=== PATIENT | male | born 1955 | race Caucasian/White ===

== ENCOUNTER 2018-06-25 21:51 | Inpatient (IN) | payer BC ==
[2018-06-25] MEDS ORDERED: MORPHINE SULFATE 4 MG/ML SYRINGE IVP STA (22:50)
[2018-06-25] MEDS: ONDANSETRON 4 MG/2 ML VIAL IVP STA (23:03)
[2018-06-25] MEDS ORDERED: HYDROcodone/APAP 5-325MG 1 EACH TAB PO STA (23:35)
[2018-06-25] MEDS ORDERED: NALOXONE 0.4 MG/ML 1 ML VIAL IV PRN (23:35)
[2018-06-25] MEDS ORDERED: HYDROcodone/APAP 5-325MG 1 EACH TAB PO PRN (23:35)
[2018-06-25] MEDS ORDERED: ONDANSETRON 4 MG/2 ML VIAL IVP PRN (23:35)
--- NOTE | 2018-06-25 23:35 | ED ---
Abdominal Pain HPI - General Chief Complaint: Abdominal Pain Stated Complaint: kidney problem Time Seen by Provider: 06/25/18 21:56 Source: patient, EMS Mode of arrival: EMS Limitations: no limitations - History of Present Illness Initial Comments: 62-year-old male patient presented to the emergency department today for evaluation as a transfer from [facility] for left-sided kidney stone. Patient reports that this morning he started with severe left-sided flank pain that persisted intermittently over the next several hours. Patient states became so severe that he was nauseated. States it began to radiate into the left lower quadrant so he presented to the hospital for further evaluation. Patient underwent extensive workup including labs and CT of the abdomen and pelvis which did show evidence of a left-sided ureteral stone measuring 3 mm, there is also evidence of forniceal rupture with perinephric extremity sensation of urine. Also concerning was patient slow hemoglobin 8.6 and positive guaiac. Patient does report intermittent symptoms of dizziness and near syncope over the last several days. Patient denies any robert blood to his stool, denies any dark or black stools. Patient does have history of acid reflux and does take Zantac on a daily basis for this. States that he still has breakthrough heartburn almost daily. Patient denies any fever or chills. Denies any urinary retention. Denies any constipation or diarrhea. States he is generally healthy and takes fish oil [id number]. Patient denies any recent rash, shortness breath, chest pain, numbness, tingling, headache, visual changes, or any other complaints. - Related Data Home Medications Medication Instructions Recorded Confirmed [place]-3 Fatty Acids/Fish Oil [Fish 1 cap PO DAILY 06/25/18 06/25/18 Oil 1,000 mg Softgel] Ranitidine HCl [Zantac] 150 mg PO DAILY 06/25/18 06/25/18 Allergies Allergy/AdvReac Type Severity Reaction Status Date / Time Penicillins Allergy Rash/Hives Verified 06/25/18 22:38 codeine AdvReac Verified 06/25/18 22:38 Review of Systems ROS Statement: Those systems with pertinent positive or pertinent negative responses have been documented in the HPI. ROS Other: All systems not noted in ROS Statement are negative. General Exam Limitations: no limitations General appearance: alert, in no apparent distress, other (Physical well- developed, well-nourished adult male patient in no acute distress. Vital signs upon presentation are temperature 97.7F, pulse 81, respirations 16, blood pressure 158/85, pulse ox 95% on room air.) Eye exam: Present: normal appearance, PERRL, EOMI. Absent: scleral icterus, conjunctival injection, periorbital swelling ENT exam: Present: normal exam, normal oropharynx, mucous membranes moist Respiratory exam: Present: normal lung sounds bilaterally. Absent: respiratory distress, wheezes, rales, rhonchi, stridor Cardiovascular Exam: Present: regular rate, normal rhythm, normal heart sounds. Absent: systolic murmur, diastolic murmur, rubs, gallop, clicks GI/Abdominal exam: Present: soft, tenderness (Left lower quadrant tenderness), normal bowel sounds. Absent: distended, guarding, rebound, rigid Neurological exam: Present: alert, oriented X3, CN II-XII intact Psychiatric exam: Present: normal affect, normal mood Skin exam: Present: warm, dry, intact, normal color. Absent: rash Course Vital Signs 06/25/18 22:07 Temperature 97.7 F Pulse Rate 81 Respiratory 16 Rate Blood Pressure 158/85 O2 Sat by Pulse 95 Oximetry Medical Decision Making - Medical Decision Making 62-year-old male patient presented to the emergency department today for evaluation as a transfer from [facility] for kidney stone. Patient underwent extensive workup including labs and CT of the abdomen and pelvis which did show evidence of a left-sided ureteral stone measuring 3 mm, there is also evidence of forniceal rupture with perinephric extremity sensation of urine. Also concerning was patient slow hemoglobin 8.6 and positive guaiac. Patient does report intermittent symptoms of dizziness and near syncope over the last several days. Patient's urinalysis does not show any evidence of infection. Remainder of labs are unremarkable. Given symptomatic anemia and positive occult blood. We will admit to the hospital for GI evaluation. Given the presence of kidney stone and kidney findings we will also consult urologist. My attending Dr. Gurjit peralta speak to Dr. Toscano. Patient will be admitted to Dr. Raymond from [facility]. Disposition Clinical Impression: Left ureteral stone, GI bleed Disposition: ADMITTED IP TO THIS [facility] Condition: Serious Referrals: Maurizio Diop DO [Primary Care Provider] - 1-2 days Decision to Admit Reason: Admit from Decision Date: 06/25/18 Decision Time: 23:35
[2018-06-26 00:50] VITALS: BMI 23.4
[2018-06-26] MEDS: ONDANSETRON 4 MG/2 ML VIAL IVP STA (00:52)
[2018-06-26] MEDS: SODIUM CHLORIDE 0.9% 1,000 ML IV SCH ×2 (00:59→12:43)
[2018-06-26] MEDS: PANTOPRAZOLE 40 MG TABLET PO SCH ×3 (00:59→17:32)
--- NOTE | 2018-06-26 01:36 | P.HPIM ---
History of Present Illness H&P Date: 06/26/18 Chief Complaint: left sided flank pain, left kidney stone 62 year old male with no significant past medical history except for GERD Patient woke up this morning with left flank pain radiating to the right side for which she went to [facility] patient was transferred to our facility from [facility] for left sided kidney stone. He reports severe left sided colicky pain 10/10 in severity intermittent , lasted for many hours , associated with nausea, pain radiating to his left groin . CT of the abdomen at the other facility showed evidence of left uretral stone measuring 3 mm. patient was also found to have symptomatic anemia with guaiac positive, Hgb was 8.6 , he admits to dizziness and near syncope over the past few days. however, he deneis any evidence of GI bleeding, denies any NSAIDs. Denies any alcohol. However he does admit to long history of GERD for which she takes Zantac. patient denies any fever, chills, chest pain , SOB. denies any hematuria, urinary symptoms. Review of Systems Pertinent positives as noted in HPI. All other systems were reviewed and are negative Past Medical History - Past Family History Mother Family Medical History: Myocardial Infarction ([place]) Father Family Medical History: Myocardial Infarction ([place]) Medications and Allergies Home Medications Medication Instructions Recorded Confirmed Type [place]-3 Fatty Acids/Fish Oil [Fish 1 cap PO DAILY 06/25/18 06/25/18 History Oil 1,000 mg Softgel] Ranitidine HCl [Zantac] 150 mg PO DAILY 06/25/18 06/25/18 History Allergies Allergy/AdvReac Type Severity Reaction Status Date / Time Penicillins Allergy Rash/Hives Verified 06/25/18 22:38 codeine AdvReac Verified 06/25/18 22:38 Physical Exam Vitals: Vital Signs Temp Pulse Resp BP Pulse Ox 06/25/18 22:07 97.7 F 81 16 158/85 95 Intake and Output 06/25/18 06/25/18 06/26/18 14:59 22:59 06:59 Other: Weight 86.183 kg Constitutional: No acute distress, conversant, pleasant Eyes: Anicteric sclerae, moist conjunctiva, no lid-lag Pupils equal round reactive to light ENMT: NC/AT Oropharynx clear, no erythema, exudates Neck: Supple, FROM, no masses, or JVD No carotid bruits No thyromegaly Lungs: Clear to auscultation Clear to percussion Normal respiratory effort, no accessory muscle use Cardiovascular: Heart regular in rate and rhythm, No murmurs, gallops, or rubs No peripheral edema Abdominal: Soft, no tenderness palpation of bilateral costovertebral angles Nontender, no guarding, rebound or rigidity Abdomen moving with respiration Normoactive bowel sounds No hepatomegaly, No splenomegaly No palpable mass No abdominal wall hernia noted Skin: Normal temperature, tone, texture, turgor No induration No subcutaneous nodules No rash, lesions No ulcers Extremities: No digital cyanosis No clubbing Pedal pulses intact and symmetrical Radial pulses intact and symmetrical No calf tenderness Psychiatric: Alert and oriented to person, place and time Appropriate affect fair judgment Neuro Muscles Strength 5/5 in all 4 extremities Sensation to light touch grossly present throughout Cranial nerves II-XII grossly intact No focal sensory deficits Lymphatics: no palpable cervical or supraclavicular , or inguinal lymph nodes Assessment and Plan Assessment: 62 year old male with no significant past medical history , admitted as in patient with anticipated length of stay >48 hours, due to syptomatic anemia, left renal stone. patient was afound to be anemia incidentally when presented for left flank pain, CT showed left uretral stone. never had Cscope or EGD, complains for chronic GERD, denies any ETOH, or NSAIDs Plan: symptomatic anemia, with near syncope PPI BID GI consult NPO IVF hydration long history of GERD, never had EGD or Cscope, denies melena or bloody bowel movement left flank pain, left uretral stone urinalysis unremarkable mild leukocytosis , no fever, pain control IVF hydration straining of urine urology consult DVT PPX mechanical , due to severe anemia Surrogate decision-maker: Patient CODE STATUS: Full code Discussed with: Patient, ER, RN Anticipated discharge: 48-[address]: Home A total of 60 minutes was spent on the care of this complex patient more than 50% of the time was spent in counseling and care coordination.
[2018-06-26 07:28] LABS: Anisocytosis Slight; Basophils % (A) 0 %; Eosinophils # (A) 0.1 k/uL (0-0.7); Eosinophils % (A) 1 %; HCT 28.2 % (39.0-53.0); HGB 8.2 gm/dL (13.0-17.5); Hypochromasia Marked; Lymphocytes # (A) 1.3 k/uL (1.0-4.8); Lymphocytes % (A) 11 %; MCH 22.3 pg (25.0-35.0); MCHC 29.2 g/dL (31.0-37.0); MCV 76.2 fL (80.0-100.0); Mean Platelet Volume 6.9; Microcytosis Slight; Monocytes # (A) 0.9 k/uL (0-1.0); Monocytes % (A) 8 %; Neutrophils # (A) 9.7 k/uL (1.3-7.7); Neutrophils % (A) 79 %; Platelet Count 350 k/uL (150-450); RDW 16.6 % (11.5-15.5); WBC 12.3 k/uL (3.8-10.6)
[2018-06-26 07:30] LABS: Prothrombin Time 10.9 sec (9.0-12.0)
[2018-06-26 07:37] LABS: Anion Gap 6 mmol/L; Blood Urea Nitrogen 13 mg/dL (9-20); Calcium 8.8 mg/dL (8.4-10.2); Carbon Dioxide 23 mmol/L (22-30); Chloride 109 mmol/L (98-107); Glucose 97 mg/dL (74-99); Potassium 4.7 mmol/L (3.5-5.1); Sodium 138 mmol/L (137-145)
[2018-06-26] MEDS: TAMSULOSIN 0.4 MG CAP.ER.24H PO SCH (07:52)
--- NOTE | 2018-06-26 09:06 | P.GSCN ---
History of Present Illness Consult date: 06/26/18 Reason for Consult: Left renal colic Requesting physician: Claus Raymond History of present illness: The patient is a 62-year-old white male with no prior history of urolithiasis. Yesterday evening, he developed acute onset of left flank pain, associated with nausea and vomiting. He was evaluated in the emergency room in [place] and found to have left hydronephrosis due to a 3 mm calculus at the left ureteroves ical junction. There was evidence of a forniceal rupture. He was transferred to [facility] and admitted. This morning, he is asymptomatic. His urine has been strained, and thus far he has not passed the calculus. Review of Systems - Constitutional Denies chills, Denies fever - Gastrointestinal Reports nausea, Reports vomiting, Denies hematochezia - Genitourinary Reports flank pain, Reports kidney stones, Denies dysuria, Denies hematuria Past Medical History Past Medical History: GERD/Reflux History of Any Multi-Drug Resistant Organisms: None Reported Past Surgical History: Bowel Resection, Hernia Repair Additional Past Surgical History / Comment(s): hernia repair x4. 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 Past Anesthesia/Blood Transfusion Reactions: No Reported Reaction Past Psychological History: No Psychological Hx Reported Smoking Status: Never smoker - Past Family History Mother Family Medical History: Myocardial Infarction ([place]) Father Family Medical History: Myocardial Infarction ([place]) Medications and Allergies Home Medications Medication Instructions Recorded Confirmed Type [place]-3 Fatty Acids/Fish Oil [Fish 1 cap PO DAILY 06/25/18 06/25/18 History Oil 1,000 mg Softgel] Ranitidine HCl [Zantac] 150 mg PO DAILY 06/25/18 06/25/18 History Allergies Allergy/AdvReac Type Severity Reaction Status Date / Time Penicillins Allergy Rash/Hives Verified 06/25/18 22:38 codeine AdvReac Verified 06/25/18 22:38 Surgical - Exam Vital Signs Temp Pulse Resp BP Pulse Ox 97.7 F 81 16 158/85 95 06/25/18 22:07 06/25/18 22:07 06/25/18 22:07 06/25/18 22:07 06/25/18 22:07 - General well developed, well nourished, no distress - Neck no masses, trachea midline - Abdomen Abdomen: soft, non tender, no guarding, no rigid, no rebound - Genitourinary normal penis with no external lesions, testicles non-tender - Psychiatric oriented to time, oriented to person, oriented to place, speech is normal, memory intact Results - Labs 06/26/18 07:07 06/26/18 07:07 Abnormal Lab Results - Last 24 Hours (Table) 06/26/18 06/26/18 Range/Units 07:07 07:07 WBC 12.3 H (3.8-10.6) k/uL RBC 3.70 L (4.30-5.90) m/uL Hgb 8.2 L (13.0-17.5) gm/dL Hct 28.2 L (39.0-53.0) % MCV 76.2 L (80.0-100.0) fL MCH 22.3 L (25.0-35.0) pg MCHC 29.2 L (31.0-37.0) g/dL RDW 16.6 H (11.5-15.5) % Neutrophils # 9.7 H (1.3-7.7) k/uL Chloride 109 H (98-107) mmol/L Diabetes panel 06/26/18 Range/Units 07:07 Sodium 138 (137-145) mmol/L Potassium 4.7 (3.5-5.1) mmol/L Chloride 109 H (98-107) mmol/L Carbon Dioxide 23 (22-30) mmol/L BUN 13 (9-20) mg/dL Creatinine 1.01 (0.66-1.25) mg/dL Glucose 97 (74-99) mg/dL Calcium 8.8 (8.4-10.2) mg/dL Calcium panel 06/26/18 Range/Units 07:07 Calcium 8.8 (8.4-10.2) mg/dL Pituitary panel 06/26/18 Range/Units 07:07 Sodium 138 (137-145) mmol/L Potassium 4.7 (3.5-5.1) mmol/L Chloride 109 H (98-107) mmol/L Carbon Dioxide 23 (22-30) mmol/L BUN 13 (9-20) mg/dL Creatinine 1.01 (0.66-1.25) mg/dL Glucose 97 (74-99) mg/dL Calcium 8.8 (8.4-10.2) mg/dL Adrenal panel 06/26/18 Range/Units 07:07 Sodium 138 (137-145) mmol/L Potassium 4.7 (3.5-5.1) mmol/L Chloride 109 H (98-107) mmol/L Carbon Dioxide 23 (22-30) mmol/L BUN 13 (9-20) mg/dL Creatinine 1.01 (0.66-1.25) mg/dL Glucose 97 (74-99) mg/dL Calcium 8.8 (8.4-10.2) mg/dL - Imaging CT scan - abdomen: report reviewed Assessment and Plan (1) Left ureteral stone Current Visit: Yes Status: Acute Code(s): N20.1 - CALCULUS OF URETER SN OMED Code(s): 41525775 Plan: I explained in detail to the patient that his options consist of medical expulsion therapy versus ureteroscopic removal of his calculus was stent insertion. The pros and cons of each approach were discussed, as were potential risks associated with surgery. He is comfortable at this time, so he will be observed. He will continue to receive tamsulosin, and his urine will be strained. Surgery may be required if he becomes increasingly symptomatic. He will likely remain hospitalized for evaluation of his anemia.
[2018-06-26 11:44] LABS: Anisocytosis Slight; Basophils % (A) 0 %; Eosinophils # (A) 0.1 k/uL (0-0.7); Eosinophils % (A) 1 %; HCT 27.8 % (39.0-53.0); HGB 8.3 gm/dL (13.0-17.5); Hypochromasia Marked; Lymphocytes # (A) 1.2 k/uL (1.0-4.8); Lymphocytes % (A) 13 %; MCH 22.7 pg (25.0-35.0); MCHC 29.7 g/dL (31.0-37.0); MCV 76.4 fL (80.0-100.0); Mean Platelet Volume 8.2; Microcytosis Slight; Monocytes # (A) 0.7 k/uL (0-1.0); Monocytes % (A) 8 %; Neutrophils # (A) 7.3 k/uL (1.3-7.7); Neutrophils % (A) 76 %; Platelet Count 322 k/uL (150-450); RBC 3.64 m/uL (4.30-5.90); RDW 16.9 % (11.5-15.5); WBC 9.7 k/uL (3.8-10.6)
[2018-06-26] MEDS ORDERED: BISACODYL 5 MG TABLET.DR PO STA (11:59)
--- NOTE | 2018-06-26 12:07 | P.PN ---
Progress Note - Text Progress Note Date: 06/26/18 Briefly this is a 62-year-old male was admitted for left-sided urolithiasis after presenting with left flank pain CT showed left ureteral stone measuring approximately 3 mm at the uterovesical junction with hydronephrosis, incidentally the patient was also noted to have symptomatic anemia with a hemoglobin of 8.2. GI has been consulted by studies are pending. Urology has been consulted and plans watchful waiting with plans to observe and hope the patient passes the stone.
--- NOTE | 2018-06-26 13:22 | P.CONS ---
History of Present Illness - Reason for Consult Consult date: 06/26/18 Anemia Requesting physician: Claus Raymond - Chief Complaint Left sided flank pain possible kidney stone - History of Present Illness 62-year-old gentleman PMH GERD and childhood bowel resection transferred from [facility] with left flank pain possible passage of left kidney stone. Consult requested for anemia positive FOBT possible GI bleed. Hemoglobin 8.2. White count 12.3. MCV 76. Platelet 350. INR 1.0. BUN 13. Creatinine 1.0. No previous CBCs to compare. Denies robert bleeding such as hematemesis hematochezia melena. Home medications include Zantac and fish oil. Medical records from [place] reported left ureteral stone but no mentioning of bowel abnormalities. Patient denies history of anemia. No history of GIB. No obvious bleeding such as hematemesis hematochezia or melena. No ETOH, NSAIDS or ASA. No history of EGD or colonoscopy. Reports chronic indigestion for several years without exacerbation. No weight loss or change in appetitis. More tired slightly short of breath with activity lately. Review of Systems Constitutional: Denies fever, chills, sweats, weight gain, or loss. HEENT: Negative for migraines, blurred vision or loss, earaches, drainage, tinnitus, oral mucosal lesions, dysphagia, or odynophagia. Cardiac: Negative for chest pain, arrhythmias, or palpitation. Respiratory: Negative for shortness of breath, hemoptysis, cough, or sputum production. Gastrointestinal: See HPI for pertinent findings. Genitourinary: Negative for hematuria, urgency, frequency, polyuria, dysuria, or penile discharge. Musculoskeletal: Negative for muscle aches, swelling, arthritis, and arthralgias . Neurologic: Negative for stroke or TIA. Endocrine: Negative for thyroid problems. Skin: Negative for rash or itching. Psychiatric: Negative history for depression and anxiety Past Medical History Past Medical History: GERD/Reflux History of Any Multi-Drug Resistant Organisms: None Reported Past Surgical History: Bowel Resection, Hernia Repair Additional Past Surgical History / Comment(s): hernia repair x4. 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 Past Anesthesia/Blood Transfusion Reactions: No Reported Reaction Past Psychological History: No Psychological Hx Reported Smoking Status: Never smoker - Past Family History Mother Family Medical History: Myocardial Infarction ([place]) Father Family Medical History: Myocardial Infarction ([place]) Medications and Allergies Home Medications Medication Instructions Recorded Confirmed Type [place]-3 Fatty Acids/Fish Oil [Fish 1 cap PO DAILY 06/25/18 06/25/18 History Oil 1,000 mg Softgel] Ranitidine HCl [Zantac] 150 mg PO DAILY 06/25/18 06/25/18 History Allergies Allergy/AdvReac Type Severity Reaction Status Date / Time Penicillins Allergy Rash/Hives Verified 06/25/18 22:38 codeine AdvReac Verified 06/25/18 22:38 Physical Exam Vitals: Vital Signs Temp Pulse Pulse Resp BP BP Pulse Ox 06/26/18 05:00 98.3 F 101 H 16 148/77 98 06/26/18 00:36 88 16 142/88 98 06/26/18 00:33 96.9 F L 79 16 144/77 96 06/25/18 22:07 97.7 F 81 16 158/85 95 Intake and Output 06/25/18 06/26/18 06/26/18 22:59 06:59 14:59 Intake Total 0 Output Total 900 Balance -900 Intake: Oral 0 Output: Urine 900 Other: Voiding Method Toilet Toilet Weight 86.183 kg General appearance: The patient is alert, oriented, in no acute distress. HET: Head is normocephalic and atraumatic. Pupils are equal and reactive. Oropharynx is clear without lesions. Neck: Supple without lymphadenopathy. Trachea midline. Heart: S1 S2. Regular rate and rhythm. Lungs: No crackles or wheezes are heard. Abdomen: Soft, nontender, nondistended with bowel sounds. No peritoneal signs. No palpable organomegaly or masses. Extremities: Normal skin color and turgor. No cyanosis, rash, ulceration, clubbing, or edema. Radial and pedal pulses are 2/4 bilaterally. Neurological: No focal deficits. Strength and sensation are grossly intact. Results CBC & Chem 7: 06/26/18 11:30 06/26/18 07:07 Labs: Abnormal Lab Results - Last 24 Hours (Table) 06/26/18 06/26/18 Range/Units 07:07 07:07 WBC 12.3 H (3.8-10.6) k/uL RBC 3.70 L (4.30-5.90) m/uL Hgb 8.2 L (13.0-17.5) gm/dL Hct 28.2 L (39.0-53.0) % MCV 76.2 L (80.0-100.0) fL MCH 22.3 L (25.0-35.0) pg MCHC 29.2 L (31.0-37.0) g/dL RDW 16.6 H (11.5-15.5) % Neutrophils # 9.7 H (1.3-7.7) k/uL Chloride 109 H (98-107) mmol/L Assessment and Plan (1) Microcytic anemia Narrative/Plan: 62 y/o male PMH GERD admitted with recent weakness fatigue slight dyspnea as well as left flank pain. Outside CT reported ureteral stone possible passage wi th positive guaiac stool and incidental finding of microcytic anemia suggestive of iron deficiency without overt bleeding. Underlying differentials to consider but not limited to is peptic ulcer disease, possible small bowel pathology possible neoplasm. Current Visit: Yes Status: Acute Code(s): D50.9 - IRON DEFICIENCY ANEMIA, UNSPECIFIED SNOMED Code(s): 591441278 (2) Left ureteral stone Current Visit: Yes Status: Acute Code(s): N20.1 - CALCULUS OF URETER SNOMED Code(s): 96067279 (3) H/O gastroesophageal reflux (GERD) Current Visit: Yes Status: Acute Code(s): Z87.19 - PERSONAL HISTORY OF OTHER DISEASES OF THE DIGESTIVE SYSTEM SNOMED Code(s): 31529202668270 (4) Guaiac positive stools Current Visit: Yes Status: Acute Code(s): R19.5 - OTHER FECAL ABNORMALITIES SNOMED Code(s): 76645081 Plan: 1. Protonix 40 mg AC-BID. 2. Iron indices. 3. EGD colonoscopy advised and scheduled in am with Dr. Lindsey. Clear liquids NPO after midnight. 4. CBC monitoring. The personnel officer has discussed the risks, benefits and alternative therapies for the above-mentioned procedure and for both sedation/analgesia as well as necessary blood product administration, if indicated, as they pertain to this patient. The patient has indicated understanding and acceptance of the risks and procedures discussed. Thank you for this kind referral and the opportunity to participate in the care of your patient. This consultation was discussed with Dr. Alba. The impression and plan of care have been directed as dictated.
[2018-06-26 14:19] VITALS: RESP 18
[2018-06-26] MEDS ORDERED: PEG 3350-NA SULF,BICARB,CL/KCL 4,000 ML BOTTLE PO ONE (15:00)
[2018-06-26 18:31] LABS: Anisocytosis Slight; Basophils # (A) 0.1 k/uL (0-0.2); Basophils % (A) 1 %; Eosinophils # (A) 0.2 k/uL (0-0.7); Eosinophils % (A) 2 %; HCT 30.7 % (39.0-53.0); HGB 8.9 gm/dL (13.0-17.5); Hypochromasia Marked; Lymphocytes # (A) 1.6 k/uL (1.0-4.8); Lymphocytes % (A) 15 %; MCH 22.2 pg (25.0-35.0); MCHC 28.9 g/dL (31.0-37.0); MCV 76.9 fL (80.0-100.0); Mean Platelet Volume 7.9; Microcytosis Slight; Monocytes # (A) 0.9 k/uL (0-1.0); Monocytes % (A) 9 %; Neutrophils # (A) 7.5 k/uL (1.3-7.7); Neutrophils % (A) 71 %; Platelet Count 370 k/uL (150-450); RBC 3.99 m/uL (4.30-5.90); RDW 16.9 % (11.5-15.5); WBC 10.5 k/uL (3.8-10.6)
[2018-06-26] MEDS ORDERED: cloNIDine HCL 0.1 MG TAB PO PRN (20:54)
[2018-06-26 21:30] VITALS: TEMP 97.1
[2018-06-27 05:10] VITALS: BP 149/75; PULSE 84
[2018-06-27] MEDS: SODIUM CHLORIDE 0.9% 1,000 ML IV SCH (06:25)
[2018-06-27] MEDS ORDERED: PROPOFOL 10 MG/ML 20 ML VIAL IV ONE (07:11)
[2018-06-27] MEDS ORDERED: LIDOCAINE 1% INJ 10MG/ML (20 ML MDV) ONE (07:11)
[2018-06-27] MEDS ORDERED: IV FLUID CONTINUATION 1,000 ML IV ONE (07:13)
[2018-06-27 07:19] LABS: Anisocytosis Slight; Basophils # (A) 0.1 k/uL (0-0.2); Basophils % (A) 1 %; Eosinophils # (A) 0.3 k/uL (0-0.7); Eosinophils % (A) 4 %; HCT 29.9 % (39.0-53.0); HGB 8.8 gm/dL (13.0-17.5); Hypochromasia Marked; Lymphocytes # (A) 1.5 k/uL (1.0-4.8); Lymphocytes % (A) 21 %; MCH 22.4 pg (25.0-35.0); MCHC 29.5 g/dL (31.0-37.0); MCV 76.2 fL (80.0-100.0); Mean Platelet Volume 7.1; Microcytosis Slight; Monocytes # (A) 0.6 k/uL (0-1.0); Monocytes % (A) 9 %; Neutrophils # (A) 4.3 k/uL (1.3-7.7); Neutrophils % (A) 62 %; Platelet Count 326 k/uL (150-450); Poikilocytosis Slight; RBC 3.92 m/uL (4.30-5.90); RDW 16.9 % (11.5-15.5); WBC 6.9 k/uL (3.8-10.6)
--- NOTE | 2018-06-27 07:55 | P.PCN ---
Date of Procedure: 06/27/18 Procedure(s) Performed: Procedures: 1. Esophagogastroduodenoscopy and biopsy. 2. Total colonoscopy. Preoperative diagnosis: Anemia and Hemoccult-positive stools area Postoperative diagnosis: 1. Moderately sized hiatal hernia with no obvious esophagitis or complicated reflux disease. 2. Mild antral gastritis. 3. Sigmoid diverticulosis with no evidence of acute diverticulitis, strictures, polyps or cancer. Preparation: GoLYTELY prep. Sedation: Was provided by anesthesia. Brief clinical history: The patient is a 62-year-old male with PMH of GERD and childhood bowel resection transferred from [facility] with left flank pain possible passage of left kidney stone. Patient was seen for anemia positive FOBT possible GI bleed. Hemoglobin 8.2. White count 12.3. MCV 76. Platelet 350. INR 1.0. BUN 13. Creatinine 1.0. No previous CBCs to compare. Denies robert bleeding such as hematemesis, hematochezia or melena. Home medications include Zantac and fish oil. No ETOH, NSAIDS or ASA. No history of EGD or colonoscopy. Reports chronic indigestion for several years without exacerbation. No weight loss or change in appetitis. More tired slightly short of breath with activity lately. Other details are summarized in the history and physical and dictated consultation and progress notes. This evaluation is to rule out ulcers, neoplasia or other pathology. Procedure: With the patient on his left lateral decubitus position and after informed consent and adequate sedation, I passed the Olympus-GIF which 190 video upper endoscope through the cricopharyngeus down the esophagus. GE junction was around 35 cm from the incisors and there was a moderately sized hiatal hernia but no obvious esophagitis or complicated reflux disease. The endoscope was then passed into the stomach which was insufflated with air and inspected in detail including the retroflex view in the cardia. There was minimal mottling and erythema in the antrum but no ulcers, erosions or bleeding. Pyloric channel, duodenal bulb, post bulbar area and descending duodenum appeared within normal limits. Because of his anemia, I obtained biopsies from the duodenum, antrum and esophagus then the endoscope was withdrawn and I proceeded to perform the colonoscopy. Perianal area did not show any fissures or fistulas. There were no masses felt on digital rectal examination. The Olympus CFH 190L video colonoscope was then inserted in the rectum in the usual fashion and advanced to the cecum. There were several diverticular orifices seen scattered in the sigmoid with no evidence of acute diverticulitis or strictures. The mucosa appeared healthy. No polyps or tumors were seen or any angiodysplasia or evidence of bleeding. I retroflexed the endoscope in the rectum before the endoscope was withdrawn. The patient tolerated the procedure well. Plan: The patient was reassured and I discussed with his family. I did not schedule a capsule endoscopy at this time and that can be kept as a contingency, as an outpatient, based on his course.
[2018-06-27] MEDS: TAMSULOSIN 0.4 MG CAP.ER.24H PO SCH (07:59)
[2018-06-27] MEDS: PANTOPRAZOLE 40 MG TABLET PO SCH (07:59)
--- NOTE | 2018-06-27 10:20 | P.DS ---
Providers Date of admission: 06/25/18 23:35 Expected date of discharge: 06/27/18 Attending physician: Claus Raymond MD Consults: 06/25/18 23:36 Consult Physician Routine Consulting Provider: Martinez Toscano Consult Reason/Comments: Left ureteral stone; Forniceal rupture Do you want consulting provider notified?: Already Contacted Consult Physician Routine Consulting Provider: Noemy Lindsay Consult Reason/Comments: GI Bleed; Anemia Do you want consulting provider notified?: Yes Primary care physician: [facility] Course: 62 year old male with no significant past medical history except for GERD. Patient woke up this morning with left flank pain radiating to the right side for which he went to [facility] Patient was transferred to our facility from [facility] for left sided kidney stone. He reports severe left sided colicky pain, 10/10 in severity intermittent, lasted for many hours, associated with nausea, pain radiating to his left groin. CT of the abdomen at the other facility showed evidence of left uretral stone measuring 3 mm. Patient was also found to have symptomatic anemia with guaiac positive, Hgb was 8.6, he admits to dizziness and near syncope over the past few days. Patient was evaluated by urology regarding nephrolithiasis decision was made to observe for passing of the stone. Treatment options including surgical options were presented to the patient, elected conservative management. Gastroenterology was consulted for guaiac-positive anemia. Hemoglobins remained stable throughout admission ranging from 8.2-8.9. Gastroenterology recommended EGD and colonoscopy which found hiatal hernia, antral gastritis and diverticulosis. Recommendation was made for outpatient follow-up. Patient was seen and examined. No acute events overnight. Patient reports complete resolution of his abdominal and flank pain. No nausea or vomiting. No fever or chills. No dizziness, chest pain or shortness of breath. Underwent EGD and colonoscopy this morning. He denies any urinary complaints. Looking forward to going home. General: [non toxic], [no distress], [appears at stated age] Derm: [warm], [dry] Head: [atraumatic], [normocephalic], [symmetric] Eyes: [EOMI], [no lid lag], [anicteric sclera] Mouth: [no lip lesion], [mucus membranes moist] Cardiovascular: [S1S2 reg], [no murmur], [positive DP pulse bilateral] Lungs: [CTA bilateral], [no rhonchi, no rales] , [no accessory muscle use] Abdominal: [soft], [ nontender to palpation], [no guarding], [no appreciable organomegaly] Ext: [no gross muscle atrophy], [no edema], [no contractures] Neuro: [no focal neuro deficits] Psych: [Alert], [oriented], [appropriate affect] Assessment and Plan 1. Acute flank pain likely secondary to nephrolithiasis 2. Anemia, microcytic, guaiac-positive 1. Seen on computed tomography scan outside hospital. Urology consulted, recommends conservative management. Patient is asymptomatic at this time with good urine output. Plans to DC home with strainer and pain management, close follow-up with urology. Continue Flomax. 2. Hemoglobin remaining stable from a 8.2-8.9. Microcytic. FOBT positive. EGD and colonoscopy performed, hiatal hernia with mild antral gastritis and diverticulosis. Follow iron studies in the outpatient setting. Follow GI in the outpatient setting. Patient asymptomatic since yesterday, states that he may have passed the stone. His creatinine has remained stable with good urine output. Will DC home with close follow-up with GI and urology. Procedures: EGD and colonoscopy Patient Condition at Discharge: Serious Plan - Discharge Summary Discharge Rx Participant: No New Discharge Prescriptions: New Tamsulosin [Flomax] 0.4 mg PO DAILY #30 cap.er.24h Ketorolac [Toradol] 10 mg PO Q6HR #30 tab Continue Ranitidine HCl [Zantac] 150 mg PO DAILY [place]-3 Fatty Acids/Fish Oil [Fish Oil 1,000 mg Softgel] 1 cap PO DAILY Discharge Medication List [place]-3 Fatty Acids/Fish Oil [Fish Oil 1,000 mg Softgel] 1 cap PO DAILY 06/25/18 [History] Ranitidine HCl [Zantac] 150 mg PO DAILY 06/25/18 [History] Ketorolac [Toradol] 10 mg PO Q6HR #30 tab 06/27/18 [Rx] Tamsulosin [Flomax] 0.4 mg PO DAILY #30 cap.er.24h 06/27/18 [Rx] Follow up Appointment(s)/Referral(s): Maurizio Diop DO [Primary Care Provider] - 1-2 days Martinez Toscano MD [STAFF PHYSICIAN] - 1 Week Luc Lindsey MD [STAFF PHYSICIAN] - 1 Week Activity/Diet/Wound Care/Special Instructions: Diet: Regular FU with PCP within 1-3 days of discharge. FU GI and Urology within 1 week of discharge. Send home with urine strainer. Please follow up with your primary care provider for continuation of anemia workup. Follow up iron studies collected here with your PCP. Discharge Disposition: HOME SELF-CARE
--- NOTE | 2018-06-27 11:06 | P.PN ---
Progress Note - Text Progress Note Date: 06/27/18 The patient is afebrile and has remained comfortable. WBC is improved at 6,900. He is straining his urine and has not recovered a stone. Unfortunately he was not straining his urine at all times yesterday so it is possible he has already passed the calculus. He will be released today and will contact Dr Toscano next week for followup.
[2018-06-27 11:20] LABS: Iron Saturation 1.87 (15.00-50.00)
== END 2018-06-27 11:09 | disposition home or self-care (01) | DRG 812 ==
LOC: EC 21:51 → 3NMEDONC 23:35
PROVIDERS: ADMIT Internal Medicine; ATTEND Internal Medicine
PROC: 0DB98ZX Excision of Duodenum, Via Natural or Artificial Opening Endoscopic, Diagnostic (ICD-10-PCS; 2018-06-27)
PROC: 0DB78ZX Excision of Stomach, Pylorus, Via Natural or Artificial Opening Endoscopic, Diagnostic (ICD-10-PCS; 2018-06-27)
PROC: 0DJD8ZZ Inspection of Lower Intestinal Tract, Via Natural or Artificial Opening Endoscopic (ICD-10-PCS; 2018-06-27)
PROC: 0DB58ZX Excision of Esophagus, Via Natural or Artificial Opening Endoscopic, Diagnostic (ICD-10-PCS; principal; 2018-06-27 07:00)
DX: D50.9 Iron deficiency anemia, unspecified (principal); N13.2 Hydronephrosis with renal and ureteral calculous obstruction; K21.9 Gastro-esophageal reflux disease without esophagitis; K29.70 Gastritis, unspecified, without bleeding; K57.30 Diverticulosis of large intestine without perforation or abscess without bleeding; R19.5 Other fecal abnormalities; K44.9 Diaphragmatic hernia without obstruction or gangrene; Z79.899 Other long term (current) drug therapy; Z82.49 Family history of ischemic heart disease and other diseases of the circulatory system; Z88.5 Allergy status to narcotic agent; Z88.0 Allergy status to penicillin; Z90.49 Acquired absence of other specified parts of digestive tract
CPT/HCPCS: 43239; 80048; 82728; 83540; 83550; 85025; 85610; 88305; 96374; 99285

== ENCOUNTER → 2019-02-12 | Day surgery (SDC) | payer BC ==
[2019-02-10 09:26] VITALS: BMI 27.1
[~2019-02-12] MED LIST: SIMETHICONE 40 MG/0.6 ML DROPS 2,000 MG/30 ML BOTTLE PO ONE
== END ==
LOC: ORWHC2ENDO 06:35
PROVIDERS: ATTEND Internal Medicine
DX: D64.9 Anemia, unspecified (principal)
CPT/HCPCS: 91110